=== PATIENT | male | born 1990 | race Caucasian/White ===

== ENCOUNTER 2017-03-01 16:23 | Emergency (ER) | payer BC ==
[~2017-03-01] VITALS: Ht 172.7 cm; Wt 81.6 kg
[~2017-03-01 16:23] MED LIST: TERA1CAP11
[2017-03-01 16:34] VITALS: BP 141/98
[2017-03-01] MEDS ORDERED: KETOROLAC TROMETHAMINE INJ 60 MG/2 ML VIAL IM ONE (17:00)
[2017-03-01] MEDS ORDERED: ONDANSETRON 4 MG TAB.RAPDIS SL ONE (17:00)
[2017-03-01] MEDS ORDERED: MORPHINE SULFATE INJ 2 MG/ML DISP.SYRIN IM ONE (17:00)
[2017-03-01] MEDS ORDERED: MORPHINE SULFATE INJ 4 MG/ML DISP.SYRIN ONE (17:32)
[2017-03-01] MEDS ORDERED: KETOROLAC TROMETHAMINE INJ 30 MG/ML VIAL ONE (17:32)
[2017-03-01] MEDS ORDERED: ONDANSETRON 4 MG TAB.RAPDIS ONE (17:32)
== END 2017-03-01 17:49 | disposition home or self-care (01) ==
LOC: ER 16:24
DX: S76.012A Strain of muscle, fascia and tendon of left hip, initial encounter (principal); F41.9 Anxiety disorder, unspecified; X58.XXXA Exposure to other specified factors, initial encounter; Y93.42 Activity, yoga; Y92.89 Other specified places as the place of occurrence of the external cause; Y99.9 Unspecified external cause status
CPT/HCPCS: A4606; J1885; J2270; Q0162; Z7610

== ENCOUNTER 2017-03-03 05:46 | Emergency (ER) | payer BC ==
[~2017-03-03] VITALS: Ht 172.7 cm; Wt 81.6 kg
[2017-03-03] MEDS ORDERED: KETOROLAC TROMETHAMINE INJ 60 MG/2 ML VIAL IM ONE (06:00)
[2017-03-03] MEDS ORDERED: LORAZEPAM 1 MG TABLET PO ONE (06:00)
--- NOTE | 2017-03-03 06:00 | NUR ---
PT BIB MOTHER, PT W/C TO ER BED 8 FOR "BACK PAIN RADIATING TO LT LEG"; WAS HERE 2 DAYS AGO FOR SAME, PT AOX3 RR EVEN AND UNLABORED. NO SOB NOTED. NAD NOTED. NO NVD AT THIS TIME. PT NOT DIAPHORETIC. PT NOTED ANXIOUS. PT GOWNED WAITING FOR MD MANN.
[2017-03-03] MEDS ORDERED: LORAZEPAM 1 MG TABLET ONE (06:03)
[2017-03-03] MEDS ORDERED: KETOROLAC TROMETHAMINE INJ 30 MG/ML VIAL ONE (06:03)
--- NOTE | 2017-03-03 06:13 | NUR ---
DR. DUARTE AT BEDSIDE FOR EVAL.
[2017-03-03] MEDS ORDERED: HYDROCODONE/APAP 10/325MG 1 EA TABLET ONE (06:27)
[2017-03-03] MEDS ORDERED: HYDROCODONE/APAP 10/325MG 1 EA TABLET PO ONE (06:30)
--- NOTE | 2017-03-03 06:54 | NUR ---
Patient discharged to home in stable condition. Written and verbal after care instructions given. Patient verbalizes understanding of instruction. ambulatory with a steady gait. pt request to be w/c.
[2017-03-03 07:05] VITALS: BP 115/73
== END 2017-03-03 07:06 | disposition home or self-care (01) ==
LOC: ER 05:50
DX: M54.32 Sciatica, left side (principal); F41.9 Anxiety disorder, unspecified
CPT/HCPCS: A4606; J1885; Z7610